=== PATIENT | female | born 1955 | race Caucasian/White ===

== ENCOUNTER 2018-03-27 06:35 | Day surgery (SDC) | payer BC ==
[~2018-03-27 06:35] MED LIST: ACETAMINOPHEN 325 MG TAB PO
[2018-03-27] MEDS: ACETYLCHOLINE OPHTH SOLN 1% 2ML (MIOCHOL-E) As Ordered (06:48)
[2018-03-27] MEDS ORDERED: PHENYLEPHRINE HCL 10 % OPHTH. SOL 5ML OD (07:00)
[2018-03-27] MEDS ORDERED: PROPARACAINE 0.5% OPHTH SOL 15ML OD (07:01)
[2018-03-27] MEDS: TROPICAMIDE 1% OPHTH SOLN 2ML OD (07:21)
[2018-03-27] MEDS: CYCLOPENTOLATE 2% OPHTH SOLN 2ML BTL OD (07:21)
[2018-03-27] MEDS: PHENYLEPHRINE 2.5% OPHTH SOL 2ML OD (07:21)
[2018-03-27] MEDS: OFLOXACIN 0.3 % (OCUFLOX) OPTH SOL 5ML OD (07:22)
[2018-03-27] MEDS: LIDOCAINE 3.5 % 1ML OPHTH TOPICAL GEL OU (07:22)
[2018-03-27 07:35] LABS: BEDSIDE GLUCOSE 99 MG/DL (80-115)
[2018-03-27] MEDS: POVIDONE-IODINE 5% OPHTH PREP SOL 30ML As Ordered (08:36)
[2018-03-27] MEDS: LIDOCAINE 1% SDV 5 ML VIAL As Ordered (08:37)
[2018-03-27] MEDS: HEALON DUET (HEALON 10MG/ML 0.55ML & HEALON ENDOCOAT 30MG/ML 0.85ML) As Ordered (08:37)
[2018-03-27] MEDS: CEFUROXIME 1MG/0.1ML INTRACAMERAL INJ As Ordered (08:37)
[2018-03-27] MEDS: BALANCED SALT IRRIGATION SOLUTION 500ML BAG (FOR OR EYE MACHINE) As Ordered (08:37)
[2018-03-27] MEDS ORDERED: fentaNYL 100 MCG/2 ML INJECTION (J3010) As Ordered (08:39)
[2018-03-27] MEDS ORDERED: MIDAZOLAM INJ 2 MG/2 ML VIAL (J2250) As Ordered (08:39)
[2018-03-27] MEDS ORDERED: TRIMETHOBENZAMIDE 300 MG CAP PO (09:15)
[2018-03-27] MEDS: KETOROLAC 0.5% OPHTH SOLN OD (09:15)
[2018-03-27] MEDS: AcetaZOLAMIDE 500 MG ER CAP PO (09:15)
== END 2018-03-27 09:35 | disposition home or self-care (01) ==
LOC: M SDC 06:35
DX: H25.11 Age-related nuclear cataract, right eye (principal); H57.03 Miosis; I25.10 Atherosclerotic heart disease of native coronary artery without angina pectoris; I25.2 Old myocardial infarction; I10 Essential (primary) hypertension; E78.5 Hyperlipidemia, unspecified; E11.9 Type 2 diabetes mellitus without complications; G47.30 Sleep apnea, unspecified; Z79.899 Other long term (current) drug therapy; Z92.23 Personal history of estrogen therapy; F17.210 Nicotine dependence, cigarettes, uncomplicated; Z85.118 Personal history of other malignant neoplasm of bronchus and lung
CPT/HCPCS: 66982